=== PATIENT | female | born 2005 | race Hispanic/Latino ===

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

== ENCOUNTER 2023-01-08 01:18 | Emergency (ER) | payer OTHER | END 2023-01-08 02:10 | disposition home or self-care (01) | LOC: ERS 01:18 | DX: B34.9 Viral infection, unspecified (principal); E10.9 Type 1 diabetes mellitus without complications | CPT/HCPCS: 99283 ==

== ENCOUNTER 2023-02-16 08:07 | Emergency (ER) | payer OTHER | END 2023-02-16 08:52 | disposition home or self-care (01) | LOC: ERS 08:07 | DX: J01.90 Acute sinusitis, unspecified (principal); E10.9 Type 1 diabetes mellitus without complications | CPT/HCPCS: 99283 ==

== ENCOUNTER 2024-08-02 11:03 | Emergency (ER) | payer SELFPAY | END 2024-08-02 11:15 | disposition home or self-care (01) | LOC: ERS 11:03 | DX: S99.921A Unspecified injury of right foot, initial encounter (principal); E10.9 Type 1 diabetes mellitus without complications; X58.XXXA Exposure to other specified factors, initial encounter | CPT/HCPCS: 99283 ==